=== PATIENT | male | born 1960 | race Caucasian/White ===

== ENCOUNTER 2024-06-24 06:31 | Inpatient (IN) | payer OTHER ==
[2024-06-24 07:05] LABS: ALT (SGPT) 15 U/L (8-55); AST (SGOT) 23 U/L (5-34); Albumin 3.9 g/dL (3.4-4.8); Alkaline Phosphatase 114 U/L (40-110); Anion Gap 15 mmol/L (10-20); BUN (Urea Nitrogen) 22 mg/dL (8.4-25.7); Calc. Creatinine Clearance 0 mL/min (70-130); Calcium 8.5 mg/dL (7.8-10.44); Carbon Dioxide 22 mmol/L (23-31); Chloride 106 mmol/L (98-107); Estimated GFR 99; Globulin 3.4 g/dL (2.4-3.5); Glucose 96 mg/dL (80-115); Potassium 4.5 mmol/L (3.5-5.1); Protein, Total 7.3 g/dL (5.8-8.1); Sodium 138 mmol/L (136-145)
[2024-06-24 07:26] LABS: Actual Bicarbonate (HCO3a) 21.1 mEq/L (22-28); Analyzer IN Cardio ER; Base Excess (BEa) -3.7 mEq/L (-2.0 to +3.0); CO2 Tension 37.6 mmHg (35.0-45.0); Calcium, Ionized (arterial) 1.18 mmol/L (1.12-1.30); Carboxyhemoglobin (COHb) 0.4 gm% (0.0-3.0); Hematocrit-ABG 45 % (42.0-52.0); Hemoglobin (Hb) 15.3 g/dL (14.0-18.0); O2 Tension (PaO2), arterial 84.8 mmHg (> 80.0); Potassium - ABG Lab 4.19 mmol/L (3.70-5.30); pH, Arterial 7.366 (7.35-7.45)
[2024-06-24 07:32] LABS: Puncture Site Right Radial artery
[2024-06-24] MEDS ORDERED: Tenecteplase 50 MG ONE (07:36)
[2024-06-24 07:56] LABS: Acetaminophen Less than 10 mcg/mL (Less than 10); Alcohol Less than 10.0 mg/dL (Less than 10); CK (CPK) 145 U/L (30-200); Lipase 26 U/L (8-78); Magnesium 2.1 mg/dL (1.6-2.6); Salicylate Less than 8.0 mg/dL (Less than 8.0)
[2024-06-24 08:01] LABS: Bacteria/HPF None Seen HPF (None Seen); Bilirubin Negative (Negative); Blood, Urine Negative (Negative); CAUTI Indications for Culture Alt mental st,lethar; Clarity Clear (Clear); Glucose, Urine (Dipstick) Normal (Negative); Ketone, Urine Negative (Negative); Leukocyte Negative Leu/uL (Negative); Nitrite Negative (Negative); Protein, Urine (Dipstick) Negative (Neg-Trace); RBC/HPF 0-3 HPF (0-3); Specific Gravity, Urine 1.017 (1.002-1.036); Squamous Epithelial None Seen HPF (0-3); Urobilinogen Normal mg/dL (Less than 2); WBC/HPF None Seen HPF (0-3); pH, Urine 7.5 (5.0-9.0)
[2024-06-24 08:01] LABS: Troponin I Less than 0.010 ng/mL (< 0.028)
[2024-06-24 08:07] LABS: Urine Culture Reflex No No
[2024-06-24 08:16] LABS: Amphetamine Not Detected (NotDetected); Barbiturates Screen Not Detected (NotDetected); Benzodiazepine Screen Not Detected (NotDetected); Cocaine Metabolite Screen Not Detected (NotDetected); Methadone Not Detected (NotDetected); Methamphetamine Not Detected (NotDetected); Opiate Screen Not Detected (NotDetected); Oxycodone Screen Not Detected (NotDetected); Phencyclidine (PCP) Not Detected (NotDetected); THC/Cannabinoid Screen Not Detected (NotDetected); Tricyclic Screen Not Detected (NotDetected)
[2024-06-24 08:16] LABS: INR-International Normal Ratio 1.1; Prothrombin Time 14.5 sec (12.0-14.7)
[2024-06-24 08:29] LABS: #Basophils 0.04 10x3/uL (0.0-0.2); %Basophils 0.6 % (0.0-1.0); %Eosinophils 3.4 % (0.0-10.0); %Lymphocytes 17.4 % (21.0-51.0); %Monocytes 8.8 % (0.0-10.0); %Neutrophils 69.4 % (42.0-75.0); Hematocrit 45.9 % (42.0-52.0); Hemoglobin 15.7 g/dL (14.0-18.0); Mean Corpuscular HGB CONC 34.2 g/dL (32.0-36.0); Mean Corpuscular Hemoglobin 31.2 pg (27.0-31.0); Mean Corpuscular Volume 91.1 fL (78.0-98.0); RBC Distribution Width 13.2 % (11.5-14.5); Red Blood Cell (RBC) Count 5.04 mill/uL (4.70-6.10)
[2024-06-24 09:03] LABS: Mean Platelet Volume 11.5 fL (7.4-10.4); Platelet Count 128 10x3/uL (130-400)
[2024-06-24] MEDS ORDERED: Ondansetron PF 4 MG/2 ML Vial IVP PRN (09:20)
[2024-06-24] MEDS ORDERED: hydrALAZINE 20 MG/ML VIAL SLOW IVP PRN (09:20)
[2024-06-24] MEDS ORDERED: niCARdipine 25 MG in Sodium Chloride 0.9% 250 ML 250 ML IVPB PRN (09:20)
[2024-06-24] MEDS ORDERED: Labetalol HCl 100 MG/20 ML VIAL SLOW IVP PRN (09:20)
[2024-06-24 09:44] LABS: Cardiac Risk 2.2 (Less than 4.5)
[2024-06-24] MEDS: Sodium Chloride 0.9% 1,000 ML IV SCH (10:02)
[2024-06-24] MEDS: Communication Order-Pharmacy FS SCH (10:05)
[2024-06-24] MEDS: cefTRIAXone\\ROCEPHIN 2 GM in Sodium Chloride 0.9% 100 ML IVPB SCH (10:06)
[2024-06-24 10:47] LABS: Troponin I Less than 0.010 ng/mL (< 0.028)
[2024-06-24] MEDS ORDERED: Iopamidol 370 76% 100 ML VIAL ONE (12:23)
[2024-06-24] MEDS: Acetaminophen 650 MG Suppository PR PRN (22:05)
[2024-06-25] MEDS: FLU (Fluarix Triv) TS24-25(6MOS UP)/PF 45 MCG/0.5 ML Syringe IM ONE (08:38)
[2024-06-25] MEDS: Pantoprazole 40 MG VIAL IVP SCH (08:41)
[2024-06-25 09:30] VITALS: BMI 47.5
[2024-06-25] MEDS: Atorvastatin Calcium 40 MG TAB PO SCH (20:59)
[2024-06-25] MEDS ORDERED: Atorvastatin Calcium 40 MG TAB PO SCH (21:00)
[2024-06-26 05:16] LABS: #Basophils Less than 0.03 10x3/uL (0.0-0.2); %Basophils 0.3 % (0.0-1.0); %Eosinophils 3.2 % (0.0-10.0); %Lymphocytes 15.5 % (21.0-51.0); %Monocytes 9.2 % (0.0-10.0); %Neutrophils 71.5 % (42.0-75.0); Hematocrit 37.1 % (42.0-52.0); Hemoglobin 12.6 g/dL (14.0-18.0); Mean Corpuscular Volume 91.2 fL (78.0-98.0); Platelet Count 114 10x3/uL (130-400); RBC Distribution Width 12.9 % (11.5-14.5); Red Blood Cell (RBC) Count 4.07 mill/uL (4.70-6.10)
[2024-06-26] MEDS: Sertraline 100 MG TAB PO SCH (08:38)
[2024-06-26] MEDS: Aspirin 325 MG TAB PO SCH (08:38)
[2024-06-26] MEDS: Lisinopril 20 MG TAB PO SCH (08:39)
[2024-06-27] MEDS: Pantoprazole DR 40 MG TAB PO SCH (08:59)
[2024-06-27] MEDS: Acetaminophen 325 MG TAB PO SCH (09:25)
[2024-06-27] MEDS: Acetaminophen 325 MG TAB PO PRN (15:59)
[2024-06-28] MEDS: Enoxaparin 40 MG (0.4 mL) SYRINGE SC SCH (08:43)
[2024-06-30] MEDS: Loperamide HCl 2 MG CAP PO PRN (21:52)
[2024-07-01 03:53] LABS: #Basophils 0.04 10x3/uL (0.0-0.2); %Basophils 0.6 % (0.0-1.0); %Eosinophils 3.5 % (0.0-10.0); %Lymphocytes 14.3 % (21.0-51.0); %Monocytes 8.3 % (0.0-10.0); %Neutrophils 72.5 % (42.0-75.0); Hematocrit 38.5 % (42.0-52.0); Hemoglobin 12.8 g/dL (14.0-18.0); Mean Corpuscular HGB CONC 33.2 g/dL (32.0-36.0); Mean Corpuscular Hemoglobin 31.1 pg (27.0-31.0); Mean Corpuscular Volume 93.4 fL (78.0-98.0); Mean Platelet Volume 9.8 fL (7.4-10.4); Platelet Count 148 10x3/uL (130-400); RBC Distribution Width 13.4 % (11.5-14.5); Red Blood Cell (RBC) Count 4.12 mill/uL (4.70-6.10)
[2024-07-01 04:09] LABS: ALT (SGPT) 12 U/L (8-55); AST (SGOT) 17 U/L (5-34); Alkaline Phosphatase 84 U/L (40-110); Anion Gap 11 mmol/L (10-20); BUN (Urea Nitrogen) 19 mg/dL (8.4-25.7); Bilirubin, Total 1.7 mg/dL (0.2-1.2); Calc. Creatinine Clearance 192 mL/min (70-130); Calcium 8.1 mg/dL (7.8-10.44); Carbon Dioxide 24 mmol/L (23-31); Chloride 105 mmol/L (98-107); Estimated GFR 100; Glucose 101 mg/dL (80-115); Potassium 3.8 mmol/L (3.5-5.1); Sodium 136 mmol/L (136-145)
[2024-07-01] MEDS: Vancomycin HCl 125 MG Capsule PO SCH (09:18)
[2024-07-01] MEDS: Saccharomyces boulardii 250 MG CAP PO SCH (09:18)
[2024-07-02 00:14] VITALS: BMI 46.0
[2024-07-02 03:48] LABS: Anion Gap 12 mmol/L (10-20); BUN (Urea Nitrogen) 20 mg/dL (8.4-25.7); Calc. Creatinine Clearance 192 mL/min (70-130); Carbon Dioxide 21 mmol/L (23-31); Chloride 104 mmol/L (98-107); Estimated GFR 100; Glucose 115 mg/dL (80-115); Potassium 3.7 mmol/L (3.5-5.1); Sodium 133 mmol/L (136-145)
[2024-07-02] MEDS ORDERED: Emollient 15 oz bottle 450 ML, Triamcinolone Acetonide 200 MG TOP SCH (09:00)
[2024-07-02] MEDS: Triamcinolone 0.1% Cream 15 GM TUBE TOP PRN (11:47)
[2024-07-03 06:03] LABS: Campy jejuni + coli by PCR Negative (Negative); STEC Shiga Toxin 1+2 Negative (Negative); Salmonella spp. by PCR Negative (Negative); Shigella spp + EIEC by PCR Negative (Negative)
[2024-07-05 20:25] VITALS: BP 116/77; TEMP 98.3
== END 2024-07-06 15:41 | DRG 62 ==
LOC: ERS 06:31 → EEVIPCON 06:31 → CCU 09:21 → 2SE 06-25 11:06 → T4-B 07-04 00:22
PROVIDERS: ADMIT Family Medicine; ATTEND Hospitalist
PROC: 3E03317 Introduction of Other Thrombolytic into Peripheral Vein, Percutaneous Approach (ICD-10-PCS; principal; 2024-06-24)
PROC: XX20X89 Monitoring of Brain Electrical Activity, Computer-aided Detection and Notification, New Technology Group 9 (ICD-10-PCS; 2024-06-24)
DX: G45.9 Transient cerebral ischemic attack, unspecified (principal); A04.72 Enterocolitis due to Clostridium difficile, not specified as recurrent; G81.92 Hemiplegia, unspecified affecting left dominant side; L03.115 Cellulitis of right lower limb; Z68.41 Body mass index [BMI] 40.0-44.9, adult; R41.82 Altered mental status, unspecified; E78.5 Hyperlipidemia, unspecified; Z99.3 Dependence on wheelchair; I25.10 Atherosclerotic heart disease of native coronary artery without angina pectoris; I10 Essential (primary) hypertension; E66.01 Morbid (severe) obesity due to excess calories; W06.XXXA Fall from bed, initial encounter; L89.899 Pressure ulcer of other site, unspecified stage; R00.1 Bradycardia, unspecified; R47.1 Dysarthria and anarthria; Z79.82 Long term (current) use of aspirin; Y93.89 Activity, other specified; Y92.143 Cell of prison as the place of occurrence of the external cause; Z79.899 Other long term (current) drug therapy; Z79.1 Long term (current) use of non-steroidal anti-inflammatories (NSAID); Z95.1 Presence of aortocoronary bypass graft
CPT/HCPCS: 36415; 36416; 36600; 51702; 70450; 70496; 70498; 70551; 71045; 72125; 80048; 80053; 80061; 80306; 80307; 81001; 82140; 82550; 82805; 83605; 83690; 83735; 83880; 84443; 84484; 85025; 85610; 85730; 87040; 87149; 87324; 87449; 87505; 93005; 93306; 94660; 96374; 99292; J0696; J1650; J2470; J3101; J7030; Q9967